=== PATIENT | male | born 1985 | race Hispanic/Latino ===

== ENCOUNTER 2025-01-08 13:21 | Outpatient (CLI) | payer MEDICARE, MEDICAID | END 2025-01-08 13:22 | disposition home or self-care (01) | LOC: CSHWCC 13:21 | PROVIDERS: ATTEND Nurse Practitioner Family | DX: L89.223 Pressure ulcer of left hip, stage 3 (principal); G80.9 Cerebral palsy, unspecified | CPT/HCPCS: 11042; G0463; 99213 ==